=== PATIENT | female | born 1980 | race Caucasian/White ===

== ENCOUNTER → 2019-06-14 | Outpatient (CLI) | payer OTHER ==
--- NOTE | 2019-06-14 16:26 | Diagnostic Imaging Report ---
PROCEDURE: US Non-ob pelvis comp/trans. TECHNIQUE: Multiple realtime grayscale images were obtained of the pelvis in various projections endovaginally. Transabdominal imaging was also performed. INDICATION: Hirsutism and menometrorrhagia. FINDINGS: Uterus measures 8.0 x 4.4 x 4.3 cm. Endometrium is 5 mm in thickness. No myometrial mass is detected. Right ovary measures 3.1 x 3.3 x 2.3 cm and the left ovary measures 2.7 x 1.7 x 1.9 cm. There is a simple-appearing cyst involving the right ovary measuring 2.0 x 1.5 x 1.7 cm. Left ovary contains a 1.2 x 1.1 x 1.0 cm cyst. There is blood flow to the ovaries. No adnexal mass or free fluid is seen. IMPRESSION: Bilateral ovarian cysts, largest on the right. No other significant abnormality is seen. Dictated by: Dictated on workstation # [id number]
== END ==
LOC: RAD 10:44
PROVIDERS: ATTEND Nurse Practitioner
DX: L68.0 Hirsutism (principal); N83.201 Unspecified ovarian cyst, right side; N83.202 Unspecified ovarian cyst, left side; R68.82 Decreased libido
CPT/HCPCS: 76830; 76856

== ENCOUNTER → 2021-12-21 | Outpatient (CLI) | payer OTHER ==
--- NOTE | 2021-12-21 11:50 | Diagnostic Imaging Report ---
PROCEDURE: US Non-ob pelvis comp/trans. TECHNIQUE: Multiple realtime grayscale images were obtained of the pelvis in various projections endovaginally. Transabdominal imaging was also performed. INDICATION: Pelvic pain Transabdominal and transvaginal ultrasonography of the pelvis is performed with comparison made to study of 06/14/2019. The anteverted uterus measures 6.7 x 3.4 x 4.3 cm with normal endometrial thickness of 0.5 cm. No uterine lesion or cervical abnormalities identified. There is blood flow to both ovaries without evidence of adnexal region mass. No free fluid is noted. IMPRESSION: Unremarkable pelvic ultrasound. Dictated by: Dictated on workstation # [id number]
--- NOTE | 2021-12-21 14:23 | Diagnostic Imaging Report ---
INDICATION: Routine screening. COMPARISON: 01/01/2020 and 07/21/2017. TECHNIQUE: 2D and 3D bilateral screening mammography was performed with CAD. FINDINGS: Scattered fibroglandular densities are identified bilaterally. The overall parenchymal pattern is stable. No mass or malignant-appearing microcalcifications are seen. The axillae are unremarkable. IMPRESSION: No mammographic features suspicious for malignancy are identified. ACR BI-RADS Category 1: Negative. Result letter will be mailed to the patient. Note: At least 10% of breast cancer is not imaged by mammography. Dictated by: Dictated on workstation # [id number]
== END ==
LOC: RAD 09:45
PROVIDERS: ATTEND Surgery
DX: Z12.31 Encounter for screening mammogram for malignant neoplasm of breast (principal); R10.2 Pelvic and perineal pain
CPT/HCPCS: 76830; 76856; 77063; 77067